=== PATIENT | male | born 1995 | race Hispanic/Latino ===

== ENCOUNTER 2024-10-23 23:44 | Inpatient (IN) | payer SELFPAY ==
[2024-10-24 00:12] LABS: #Basophils 0.05 10x3/uL (0.0-0.2); %Basophils 0.3 % (0.0-1.0); %Eosinophils 2.2 % (0.0-10.0); %Lymphocytes 18.9 % (21.0-51.0); %Monocytes 5.9 % (0.0-10.0); %Neutrophils 72.2 % (42.0-75.0); Hematocrit 43.3 % (42.0-52.0); Hemoglobin 14.6 g/dL (14.0-18.0); Mean Corpuscular HGB CONC 33.7 g/dL (32.0-36.0); Mean Corpuscular Hemoglobin 29.5 pg (27.0-31.0); Mean Corpuscular Volume 87.5 fL (78.0-98.0); Mean Platelet Volume 9.3 fL (7.4-10.4); Platelet Count 233 10x3/uL (130-400); Red Blood Cell (RBC) Count 4.95 mill/uL (4.70-6.10)
[2024-10-24 00:29] LABS: ALT (SGPT) 22 U/L (8-55); AST (SGOT) 21 U/L (5-34); Albumin 3.8 g/dL (3.5-5.0); Alkaline Phosphatase 103 U/L (40-110); Anion Gap 19 mmol/L (10-20); BUN (Urea Nitrogen) 27 mg/dL (8.9-20.6); Bilirubin, Total 0.3 mg/dL (0.2-1.2); Calc. Creatinine Clearance 0 mL/min (70-130); Carbon Dioxide 16 mmol/L (22-29); Chloride 105 mmol/L (98-107); Estimated GFR 116; Globulin 3.5 g/dL (2.4-3.5); Glucose 100 mg/dL (70-105); Potassium 3.6 mmol/L (3.5-5.1); Protein, Total 7.3 g/dL (6.0-8.3); Sodium 136 mmol/L (136-145)
[2024-10-24] MEDS ORDERED: Dexamethasone 10 MG/ML VIAL ONE ×2 (02:54→08:34)
[2024-10-24] MEDS ORDERED: Ondansetron PF 4 MG/2 ML Vial IVP PRN (03:38)
[2024-10-24] MEDS ORDERED: Ondansetron ODT 4 MG TAB PO PRN (03:38)
[2024-10-24] MEDS ORDERED: Lorazepam 2 MG/ML VIAL SLOW IVP SCH (03:45)
[2024-10-24 04:12] LABS: Amphetamine Not Detected (NotDetected); Barbiturates Screen Not Detected (NotDetected); Benzodiazepine Screen Not Detected (NotDetected); Cocaine Metabolite Screen Not Detected (NotDetected); Methadone Not Detected (NotDetected); Methamphetamine Not Detected (NotDetected); Opiate Screen Not Detected (NotDetected); Oxycodone Screen Not Detected (NotDetected); Phencyclidine (PCP) Not Detected (NotDetected); THC/Cannabinoid Screen Not Detected (NotDetected); Tricyclic Screen Not Detected (NotDetected)
[2024-10-24] MEDS ORDERED: Lorazepam 2 MG/ML VIAL SLOW IVP PRN (04:43)
[2024-10-24 07:27] LABS: Magnesium 1.8 mg/dL (1.6-2.6)
[2024-10-24] MEDS ORDERED: levETIRAcetam 500 MG TAB ONE (08:35)
[2024-10-24] MEDS: Dexamethasone 4 mg/ml Vial SLOW IVP SCH (08:39)
[2024-10-24] MEDS: levETIRAcetam 500 MG TAB PO SCH (08:39)
[2024-10-25 04:21] LABS: #Basophils Less than 0.03 10x3/uL (0.0-0.2); #Eosinophils Less than 0.03 10x3/uL (0.0-0.7); %Basophils 0.1 % (0.0-1.0); %Lymphocytes 5.3 % (21.0-51.0); %Monocytes 2.8 % (0.0-10.0); %Neutrophils 91.2 % (42.0-75.0); Hematocrit 42.1 % (42.0-52.0); Hemoglobin 14.2 g/dL (14.0-18.0); Mean Corpuscular HGB CONC 33.7 g/dL (32.0-36.0); Mean Corpuscular Hemoglobin 29.4 pg (27.0-31.0); Mean Corpuscular Volume 87.2 fL (78.0-98.0); Mean Platelet Volume 9.3 fL (7.4-10.4); Platelet Count 266 10x3/uL (130-400); RBC Distribution Width 12.8 % (11.5-14.5); Red Blood Cell (RBC) Count 4.83 mill/uL (4.70-6.10)
[2024-10-25 05:15] LABS: Anion Gap 12 mmol/L (10-20); BUN (Urea Nitrogen) 23 mg/dL (8.9-20.6); Calc. Creatinine Clearance 99 mL/min (70-130); Calcium 9.2 mg/dL (7.8-10.44); Carbon Dioxide 23 mmol/L (22-29); Chloride 104 mmol/L (98-107); Estimated GFR 118; Glucose 142 mg/dL (70-105); Potassium 3.9 mmol/L (3.5-5.1); Sodium 135 mmol/L (136-145)
[2024-10-25] MEDS: Acetaminophen 325 MG TAB PO PRN (08:53)
[2024-10-25] MEDS: Pantoprazole DR 40 MG TAB PO SCH (18:26)
[2024-10-26 04:23] LABS: #Basophils Less than 0.03 10x3/uL (0.0-0.2); #Eosinophils Less than 0.03 10x3/uL (0.0-0.7); %Basophils 0.1 % (0.0-1.0); %Lymphocytes 5.7 % (21.0-51.0); %Monocytes 6.2 % (0.0-10.0); %Neutrophils 87.6 % (42.0-75.0); Hematocrit 42.2 % (42.0-52.0); Hemoglobin 14.1 g/dL (14.0-18.0); Mean Corpuscular HGB CONC 33.4 g/dL (32.0-36.0); Mean Corpuscular Hemoglobin 29.3 pg (27.0-31.0); Mean Corpuscular Volume 87.6 fL (78.0-98.0); Mean Platelet Volume 9.4 fL (7.4-10.4); Platelet Count 287 10x3/uL (130-400); Red Blood Cell (RBC) Count 4.82 mill/uL (4.70-6.10)
[2024-10-26 04:51] LABS: Anion Gap 14 mmol/L (10-20); BUN (Urea Nitrogen) 25 mg/dL (8.9-20.6); Calc. Creatinine Clearance 87 mL/min (70-130); Carbon Dioxide 23 mmol/L (22-29); Chloride 107 mmol/L (98-107); Estimated GFR 101; Glucose 117 mg/dL (70-105); Magnesium 2.1 mg/dL (1.6-2.6); Potassium 3.9 mmol/L (3.5-5.1); Sodium 140 mmol/L (136-145)
[2024-10-26] MEDS: Dexamethasone 4 MG TAB PO SCH (08:17)
[2024-10-26] MEDS: Pantoprazole DR 40 MG TAB PO SCH (08:17)
[2024-10-26] MEDS: Dexamethasone 1 MG TAB PO SCH (09:33)
[2024-10-26 15:43] VITALS: BP 113/64; TEMP 97.9
[2024-10-26] MEDS: Baclofen 10 MG TAB PO PRN (15:53)
[2024-10-27] MEDS ORDERED: Dexamethasone 1 MG TAB PO SCH (09:00)
[2024-10-28] MEDS ORDERED: Dexamethasone 1 MG TAB PO SCH (09:00)
[2024-10-29] MEDS ORDERED: Dexamethasone 1 MG TAB PO SCH (09:00)
== END 2024-10-26 20:40 | disposition home or self-care (01) | DRG 54 ==
LOC: EDBD 23:44 → ERS 23:44 → ERHOLD 10-24 03:17 → 2SE 10-24 14:35 → OBSVTOIN 10-24 17:38
PROVIDERS: ADMIT Internal Medicine; ATTEND Internal Medicine
PROC: 4A00X4Z Measurement of Central Nervous Electrical Activity, External Approach (ICD-10-PCS; principal; 2024-10-24)
DX: C79.31 Secondary malignant neoplasm of brain (principal); G93.6 Cerebral edema; G40.909 Epilepsy, unspecified, not intractable, without status epilepticus; D48.9 Neoplasm of uncertain behavior, unspecified; Z79.899 Other long term (current) drug therapy; Z98.890 Other specified postprocedural states
CPT/HCPCS: 36415; 36416; 70450; 70553; 72125; 76376; 80048; 80053; 80306; 83605; 83735; 84145; 85025; 86141; 93005; 95813; 96374; 96376; G0378; J1100; J8540

== ENCOUNTER 2025-08-08 13:18 | Emergency (ER) | payer MEDICAID, SELFPAY ==
[2025-08-08 14:20] LABS: ALT (SGPT) 22 U/L (Less than 45); AST (SGOT) 28 U/L (11-34); Albumin 4.3 g/dL (3.1-4.5); Alkaline Phosphatase 113 U/L (40-110); Anion Gap 13 mmol/L (10-20); BUN (Urea Nitrogen) 22 mg/dL (8.9-20.6); Bilirubin, Total 0.5 mg/dL (0.3-1.2); Calc. Creatinine Clearance 0 mL/min (70-130); Calcium 9.6 mg/dL (7.8-10.44); Carbon Dioxide 25 mmol/L (22-29); Chloride 106 mmol/L (98-107); Globulin 3.0 g/dL (2.4-3.5); Glucose 85 mg/dL (70-105); Potassium 4.6 mmol/L (3.5-5.1); Sodium 139 mmol/L (136-145)
[2025-08-08 14:42] LABS: #Basophils 0.03 10x3/uL (0.0-0.2); #Eosinophils 0.18 10x3/uL (0.0-0.7); #Monocytes 0.48 10x3/uL (0.11-0.59); #Neutrophils 4.49 10x3/uL (1.40-6.50); %Basophils 0.5 % (0.0-1.0); %Eosinophils 2.7 % (0.0-10.0); %Lymphocytes 20.7 % (21.0-51.0); %Monocytes 7.3 % (0.0-10.0); %Neutrophils 68.5 % (42.0-75.0); Hematocrit 48.6 % (42.0-52.0); Hemoglobin 15.5 g/dL (14.0-18.0); Mean Corpuscular Hemoglobin 28.3 pg (27.0-31.0); Mean Corpuscular Volume 88.8 fL (78.0-98.0); Platelet Count 244 10x3/uL (130-400); Red Blood Cell (RBC) Count 5.47 mill/uL (4.70-6.10); White Blood Cell (WBC) Count 6.56 10x3/uL (4.8-10.8)
== END 2025-08-08 19:44 | disposition home or self-care (01) ==
LOC: ERS 13:18
DX: M21.372 Foot drop, left foot (principal); C79.9 Secondary malignant neoplasm of unspecified site; D18.01 Hemangioma of skin and subcutaneous tissue; Z85.89 Personal history of malignant neoplasm of other organs and systems
CPT/HCPCS: 36415; 70450; 72131; 72148; 80053; 85025